=== PATIENT | female | born 1960 | race Hispanic/Latino ===

== ENCOUNTER 2022-04-20 22:55 | Emergency (ER) | payer BC ==
[~2022-04-20] VITALS: Ht 157.5 cm; Wt 69.4 kg
[2022-04-20 23:13] VITALS: BP 143/65
[2022-04-20] MEDS: IBUPROFEN 600 MG TABLET PO ONE ×2 (23:21→23:26)
[2022-04-20] MEDS ORDERED: IBUP-2070 PO (23:23)
[2022-04-20] MEDS ORDERED: ACETAMINOPHEN 500 MG TABLET ONE (23:24)
[2022-04-20] MEDS ORDERED: ACETAMINOPHEN 500 MG TABLET PO ONE (23:30)
== END 2022-04-20 23:34 | disposition home or self-care (01) ==
LOC: EDH 22:55
DX: M25.521 Pain in right elbow (principal); Z79.1 Long term (current) use of non-steroidal anti-inflammatories (NSAID); W01.0XXA Fall on same level from slipping, tripping and stumbling without subsequent striking against object, initial encounter; Y93.89 Activity, other specified; Y92.89 Other specified places as the place of occurrence of the external cause; Y99.8 Other external cause status
CPT/HCPCS: 73080

== ENCOUNTER 2025-02-10 14:06 | Emergency (ER) | payer MEDICARE ==
[~2025-02-10] VITALS: Ht 152.4 cm; Wt 68.9 kg
[~2025-02-10 14:06] MED LIST: IBUP-1492 PO
[2025-02-10 15:22] LABS: RAPID GROUP A STREP negative (NEGATIVE)
[2025-02-10 15:25] LABS: SARS-CoV-2, RNA, NAAT POSITIVE SARS CoV-2 (NEGATIVE)
--- NOTE | 2025-02-10 15:25 | ERN ---
General Chief Complaint: Sore Throat Stated Complaint: SORE THROAT Time Seen by MD: 14:15 Source: patient History of Present Illness Initial Comments Patient is a 64-year-old female coming in with a sore throat. Patient states that this has been ongoing for two days. States that she has also been feeling nasal congestion and right ear pain. Allergies: Coded Allergies: No Known Allergies (Unverified Allergy, Unknown, 04/20/22) Home Meds Active Scripts Ibuprofen (Ibuprofen) 600 Mg Tablet, 600 MG PO Q6H PRN for PAIN, #15 TAB Prov:REJI DOMINGO J[employer] COUNSELOR 04/20/22 Past Medical History Past Medical History: No Pertinent History Medical History Other: denies pmhx Past Surgical History: Other Surgical History Other: left knee sx ROS Dictation CONSTITUTIONAL: No chills, no fever, no weakness, no diaphoresis, no malaise. HEAD/FACE: No signs of trauma. EENT: No eye pain, no blurred vision, no tearing, no double vision, ear pain, no ear discharge, no nose pain, nasal congestion, throat pain, no throat swelling, no mouth pain. RESPIRATORY: No cough, no orthopnea, no SOB, no stridor, no wheezing. CARDIOVASCULAR: No chest pain, no edema, no palpitations, no syncope. GASTROINTESTINAL/ABDOMINAL: No abdominal pain, no constipation, no diarrhea, no nausea, no vomiting. GENITOURINARY: No abnormal discharge, no dysuria, no frequent urination, no hematuria. No complaints of pain in the genitals. MUSCULOSKELETAL: No back pain, no gout, no joint pain, no joint swelling, no muscle pain, no muscle stiffness, no neck pain. INTEGUMENTARY: No change in color, no change in hair/nails, no dryness, no lesion, no lumps, no rash. NEUROLOGICAL/PSYCH: No anxiety, not depressed, no emotional problem, no headache, no numbness, no pre-existing deficit, no history of seizures, no tremors, no weakness. HEMATOLOGIC/LYMPHATIC: Not anemic, no history of blood clots, no apparent bleeding, no bruising, glands not swollen. All Systems Negative, Except as Noted. Physical Exam Physical Exam Dictation VITAL SIGNS: Reviewed. GENERAL APPEARANCE: Alert, oriented x3, no acute distress, obese. HEAD AND FACE: Non-traumatic. EYES: PERRL, pink conjunctivas, eyelid no trauma, anterior chamber clear. EARS: Pinnas intact and no signs of trauma or erythema. Ear canals clear and no discharge. TMs no erythema. NOSE: No discharge, no bleeding. OROPHARYNX: Mouth normal, teeth no caries, tongue pink. Pharynx erythema. Tonsils exudates, no abscesses noted. Mucous membrane moist. NECK: Supple, non-tender, no thyromegaly, no masses, no JVD, no bruits. BREAST: Deferred. CHEST: No tenderness, no crepitus, no paradoxical movement, no retractions. LUNGS: Clear, well-ventilated, symmetric, no rales, no wheezing, no rhonchi, no stridor, good breath sounds bilaterally. HEART: Regular rate, regular rhythm, no murmur, no gallops. VASCULAR: No peripheral edema. ABDOMEN: Soft, positive bowel sounds, nondistended, no guarding, nontender, no rebound, no masses no hepatomegaly, no splenomegaly, no Kendall's sign, no hernias. RECTAL: Deferred. GENITAL: Deferred. NEUROLOGICAL: Normal speech, gross motor function intact, gross sensory function intact. MUSCULOSKELETAL: Neck nontender, full range of motion, back nontender, full range of motion. EXTREMITIES: Nontender, full range of motion. SKIN: Color pink, dry, no turgor, no rash, no lacerations, no abrasions, no contusions. LYMPHATICS: Deferred. Results Laboratory and Microbiology Lab and Micro Result Laboratory Tests Test 02/10/25 14:37 SARS-CoV-2, RNA, NAAT POSITIVE SARS CoV-2 Group A Streptococcus Rapid negative (NEGATIVE) Labs Reviewed?: Yes MDM MDM: Differential diagnosis: Strep pharyngitis, URI, sinusitis, Rationale: Tests considered and ordered secondary to shared decision making include: Previous outside records reviewed: Old ER visits. Risk of complication and/or morbidity or mortality of patient management: None Medications-Per medication reconciliation Need for hospitalization: Patient does not meet criteria for hospitalization. Need for emergency major/minor surgery: No Patient is a 64-year-old female coming in complaining of URI symptoms. Per patient this has been ongoing for two days. On physical exam there is oropharyngeal erythema with pustular lesion. Laboratory workup positive for COVID based on the physical findings patient will be discharged with oral antibiotics the take care of strep pharyngitis. ED Course Orders Procedure Category Date Status Time Covid Rna Naat LAB 02/10/25 Complete 14:25 Dexamethasone 4mg/Ml PHA 02/10/25 Complete 1ml Vial (Dexametha 14:30 Rapid (Group A Strep) LAB 02/10/25 Complete 14:37 Current Medications Medications (Trade) Dose Ordered Sig/Tamie Route PRN Reason Start Time Stop Time Status Last Admin Dose Admin Dexamethasone Sodium Phosphate (dexaMETHasone 4MG/ML 1ML VIAL) 4 mg ONCE ONCE IM 02/10/25 14:30 02/10/25 14:31 DC 02/10/25 15:39 Vital Signs Date Time Temp Pulse Resp B/P (MAP) Pulse Ox O2 Delivery O2 Flow Rate FiO2 02/10/25 14:11 98.1 82 16 135/66 98 Room Air* 0 21 02/10/25 14:07 98.1 82 16 135/66 98 DX & DISP Disposition: Discharge Departure Impression: Primary Impression: COVID-19 Additional Impression: Strep pharyngitis Condition: Stable Scripts Amoxicillin/Potassium Clav (Amox Tr-K Clv 875-125 mg Tab) 875 Mg-125 Mg Tablet 1 TAB PO BID for 10 Days, #20 TAB 0 Refills Prov: JEAN LÓPEZ MD 02/10/25 Additional Instructions: FOLLOW-UP WITH PRIMARY CARE PROVIDER IN 1 TO 2 DAYS. TAKE MEDICATIONS DIRECTED HERE IN THE EMERGENCY ROOM. OKAY TO CONTINUE HOME MEDICATIONS UNLESS OTHERWISE DISCUSSED DURING YOUR VISIT IN THE EMERGENCY ROOM TODAY. RETURN TO YOUR NEAREST EMERGENCY ROOM IF SYMPTOMS WORSEN OR IF THERE IS NO IMPROVEMENT. CALL 911 IF YOU NEED IMMEDIATE ASSISTANCE. TAKE TYLENOL [id number] NEEDED AND IF NO CONTRAINDICATIONS ARE PRESENT. INCREASE ORAL HYDRATION. A WOUND CULTURE OR URINE CULTURE WAS ORDERED HERE IN THE EMERGENCY ROOM DEPARTMENT PLEASE FOLLOW-UP WITH PRIMARY CARE PROVIDER AND ADVISE THEM TO GET REPORTS FROM OUR FACILITY. IF YOU HAD ANY AMEE WRAP/SPLINTS THAT WERE APPLIED HERE, PLEASE DO NOT REMOVE THEM UNTIL YOU SEE YOUR PRIMARY CARE OR SPECIALTY. Referrals: Referrals: LAUREL CORONADO MD (PCP) Time of Disposition: 15:49 JEAN LÓPEZ MD Feb 10, 2025 15:25
[2025-02-10] MEDS ORDERED: AMOX1TAB16 PO (15:49)
[2025-02-10 15:54] VITALS: BP 144/69; PULSE 80; RESP 16; TEMP 98; O2SAT 98
== END 2025-02-10 16:03 | disposition home or self-care (01) ==
LOC: EDH 14:06
DX: U07.1 COVID-19 (principal); J02.0 Streptococcal pharyngitis
CPT/HCPCS: 99283; 87635; 87880; 96372; J1100